=== PATIENT | male | born 2000 | race Caucasian/White ===

== ENCOUNTER 2022-03-15 14:30 | Outpatient (RCR) | payer OTHER, SELFPAY ==
--- NOTE | 2022-01-29 09:44 | HP.PTEVAL ---
Patient's Visit Information DANTE CELESTE is a 22 year old M referred to Physical Therapy by LILIANA GAYTAN with a diagnosis of L Ulnar neuritis. s/p UCL repair 12/25. Date of Evaluation: 01/29/22 Physical Therapist: Jeremías Miller, DPT, OCS, CSCS - Visit Plan Frequency: 2-3x /Week Duration: 4-6 Weeks Plan: 1-2x/week for 4-6 weeks as needed for...(pt is no strengthening currently adn just ROM). 1. PROM, AAROM and AROM L elbow, manual therapy of mobs and scar massage and nerve glides as needed. strengthenign when allowed by doctor with return to function activities. - Subjective L UCL repair surgery 12/25/21. June heard a pop and swelled up and hurt for a while. Has had no problems since surgery. Was in a sling for a week then just given movement. Will see surgeon in about a week. precautions are no lifting over 1# and work on ROM. ROM is still limited but improving. Pain is not an issue except when he is stretching. Sleeping is fine. Not employed. Basic ADLS are Ok, he is right handed. Spends day around house. 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 Has been on computer and does OK right now so far. Hobbies include golfing. Numbness and tingling in hand is gone since surgery. - Objective L elbow 65 flexion vs 45 on R and -20 ext vs full on R. supination and pronation are full B. neck, scapula and shoulder AROM are full and painfree, wrist AROM painfree adn full! Mild scar tissue l ulnar nerve medial UCL area, mildly tender to the touch. I with gait and trasfer, arm swings well with gait. - Balance/Special Test Scores Quick DASH Score: 34.0900 - Goals Goal 1:: Full arom to 45 flexion and 180 extension L elbow without discomfort. Goal Time Frame: 6-8 Weeks Goal 2:: progress to i with HEP as allowed by doctor for ROM and strength Goal Time Frame: 4-6 Weeks Goal 3:: Pt report 100% improvement in his condition. Goal Time Frame: 4-6 Weeks Goal 4:: <15 quick dash score Goal Time Frame: 4-6 Weeks - Rehabilitation Potential Physical Therapy Diagnosis: stiff elbow after recent surgery. Rehabilitation Potential: Good - Anticipated Interventions Patient/Client Instruction: Educate patient on: Condition, Plan of Care For the Purpose of:: To decrease pain, To increase ROM, To improve muscle performance and motor function, To increase tolerance to activity/condition/position Therapeutic Exercise to Include: Strength training, Passive ROM, Active ROM For the Purpose of:: To decrease pain, To increase ROM, To improve muscle performance and motor function, To increase tolerance to activity/condition/position Manual Therapy Techniques to Include: Scar massage, Mobilization, Soft tissue mobilization For the Purpose of:: To decrease pain, To increase ROM Cryotherapy (ice pack, ice massage): Yes For the Purpose of:: To decrease pain, To decrease swelling/inflammation Thank you for the opportunity to evaluate your patient. For Medicare and Medicare HMO plans, please review the plan of care and approve it. It will need to be FAXED BACK to us at [phone] for Medicare purposes. For Medicare only, by signing this I certify the plan of care. Please let me know if there are questions or concerns regarding this plan of care. Physician Signature: Date:
--- NOTE | 2022-03-15 15:13 | HP.PTDCSUM ---
It has been my pleasure to treat DANTE CELESTE referred by LILIANA GAYTAN, with the diagnosis of L Ulnar neuritis. s/p UCL repair 12/25 for a total of 13 visit(s). Discharge Date: Please see the following information for a summary of their discharge status. Subjective: Feel stronger. No pain to speak of , has some shoulder soreness with [id number]. Activities are normal. Lifting without limitations. No B UE sports. May wrestle in months but no time soon. To doctor on April 03. No precautions. Sleeping well. ROM is good and full. % Improvement: 100 Objective/Function: Full aROM L elbow symmetrical to R without pain. Strength symmetrical at 5/5 bi and sup and pronation and 4+ tricep B. pushups easy and WB through arms not a problem. Overall doing very well. Goal 1:: Full arom to 45 flexion and 180 extension L elbow without discomfort. Goal Progress: Goal Met Goal 2:: progress to i with HEP as allowed by doctor for ROM and strength Goal Progress: Goal Met Goal 3:: Pt report 100% improvement in his condition. Goal Progress: Goal Met Goal 4:: <15 quick dash score Goal Progress: Goal Met Plan: d/c Discharge Comments: Pt to f/u with doctor in 3 weeks If there are questions or concerns regarding this patient's physical therapy, please feel free to call me at [phone]. Thank you for the referral of this patient. Sincerely, Jeremías Miller, DPT, OCS, CSCS Balance/Gait/Functional tests - Balance/Special Test Scores Quick DASH Score: 2.2725
== END 2022-03-15 15:15 | disposition home or self-care (01) ==
LOC: PT 14:30
PROVIDERS: PCP Family Medicine
DX: S53.32XD Traumatic rupture of left ulnar collateral ligament, subsequent encounter (principal)
CPT/HCPCS: 97110; 97140; 97161; 97164; 97530